=== PATIENT | female | born 1950 | race Asian ===

== ENCOUNTER 2018-07-10 19:48 | Emergency (ER) | payer OTHER | END 2018-07-10 23:35 | disposition home or self-care (01) | LOC: FTE 19:48 | DX: S42.215 Unspecified nondisplaced fracture of surgical neck of left humerus (principal); S89.91XA Unspecified injury of right lower leg, initial encounter; I50.9 Heart failure, unspecified; E11.9 Type 2 diabetes mellitus without complications; I11.0 Hypertensive heart disease with heart failure; W19.XXXA Unspecified fall, initial encounter; Y92.9 Unspecified place or not applicable | CPT/HCPCS: 73562; 99283-25 ==